=== PATIENT | male | born 1995 | race Two or more races ===

== ENCOUNTER 2022-09-18 17:00 | Emergency (ER) | payer BC, OTHER ==
[~2022-09-18] VITALS: Ht 180.3 cm; Wt 95.5 kg
[2022-09-18] MEDS ORDERED: SODIUM CHLORIDE 0.9% 1,000 ML IV ONE (17:30)
[2022-09-18] MEDS ORDERED: fentaNYL CITRATE 100 MCG/2 ML VL IV ONE ×2 (17:45→19:15)
[2022-09-18 18:33] LABS: Basophils # (auto) 0 10 ^3/uL (0-0.2); Basophils % (auto) 0.2 % (0.0-2.0); Eosinophils # (auto) 0 10 ^3/uL (0-0.8)
[2022-09-18 18:36] LABS: Eosinophils % (auto) 0.2 % (0.0-7.0); Hemoglobin 13.4 g/dL (13.5-17.5); Lymphocytes # (auto) 2.1 10 ^3/uL (0.4-5.4); Lymphocytes % (auto) 16.5 % (10.0-50.0); Mean Corpuscular Hemoglobin 26.4 pg (28.0-32.0); Mean Corpuscular Hgb Conc. 31.8 g/dL (32.0-36.0); Mean Corpuscular Volume 82.9 fL (80.0-100.0); Monocytes % (auto) 7.8 % (0.0-12.0); Neutrophils # (auto) 9.8 10 ^3/uL (1.6-8.6); Neutrophils % (auto) 75.3 % (37.0-80.0); Red Blood Cells 5.07 10^6/uL (4.5-5.90); Red Cell Distribution Width 13.3 % (11.8-14.3)
[2022-09-18 18:56] LABS: Albumin 3.5 g/dL (3.4-5.0); Calcium 8.4 mg/dL (8.5-10.1)
[2022-09-18 18:56] LABS: Lactic Acid w/Reflex 2.7 mmol/L (0.4-2.0)
[2022-09-18 18:58] LABS: BUN/Creatinine Ratio 9.9
[2022-09-18 19:08] LABS: Bilirubin, Total 0.4 mg/dL (0.2-1.0); Total Protein 6.9 g/dL (6.4-8.2)
[2022-09-18] MEDS ORDERED: PIPERACILLIN-TAZOB 3.375GM 100 ML IV ONE (19:15)
[2022-09-18] MEDS ORDERED: ONDANSETRON HCL 4 MG/2 ML VIAL IV ONE (21:00)
[2022-09-18] MEDS ORDERED: HYDROmorphone HCL 2 MG/ML VL/or syr IV ONE (21:00)
[2022-09-19] MEDS ORDERED: IOHEXOL 350 MG/ML 100ML IJ ONE (00:26)
[2022-09-19] MEDS ORDERED: HYDROmorphone HCL 2 MG/ML VL/or syr IV ONE (05:45)
[2022-09-19 05:54] VITALS: BP 137/87
== END 2022-09-19 06:13 | disposition short-term general hospital (02) ==
LOC: ER 17:00 → EDBD 17:00 → ER 09-19 06:13
DX: R91.8 Other nonspecific abnormal finding of lung field (principal); G89.18 Other acute postprocedural pain; Z87.442 Personal history of urinary calculi; Z90.49 Acquired absence of other specified parts of digestive tract; Z98.890 Other specified postprocedural states; Z20.822 Contact with and (suspected) exposure to COVID-19
CPT/HCPCS: 36415; 71045; 71275; 74176; 80053; 83605; 83690; 84484; 85025; 85379; 87040; 87426; 93005; 96361; 96365; 96375; 96376; 99285; J1170; J2405; J2543; J3010; J7030; Q9967